=== PATIENT | female | born 1970 | race Two or more races ===

== ENCOUNTER → 2024-06-02 | Outpatient (CLI) | payer MEDICAID, SELFPAY ==
--- NOTE | 2024-06-02 12:50 | XR_ITS ---
Examination: Left os calcis 2 views Technique one AP lateral left os calcis 2 views Exam date and time: June 02, 2024 1306 hrs. Indications: Heel pain with walking beginning 2 months ago. Findings: 11 mm pontine 9 mm posterior bony calcaneal spurs Ossification in the plantar fascia Impression: No fracture Significant plantar posterior bony calcaneal spurs Ossification plantar fascia
== END | disposition home or self-care (01) ==
PROVIDERS: PCP Physician Assistant; Referring Provider Nurse Practitioner Primary Care; Visit Provider Nurse Practitioner Primary Care
DX: M77.32 Calcaneal spur, left foot (principal); M61.572 Other ossification of muscle, left ankle and foot
CPT/HCPCS: 73650

== ENCOUNTER → 2024-08-31 | Outpatient (CLI) | payer MEDICAID, SELFPAY ==
--- NOTE | 2024-08-31 10:00 | XR_ITS ---
Examination: Screening digital mammography, bilateral Computer aided detection 3-D breast Tomosynthesis, bilateral Date and time of exam: August 31, 2024 1022 hours Compared to mammograms dating to March 14, 2020 Indication: Screening Technique: Nonmagnified MLO, CC views of the breasts to been obtained, reconstructed from 3-D Tomosynthesis images. R2 computer aided detection program utilized for evaluation of suspicious masses and/or abnormal calcifications. 3-D Tomosynthesis images obtained. Findings: Scattered areas of fibroglandular density Benign calcifications. No interval suspicious masses Impression: BI-RADS category II: Benign Findings. Recommend 1 year follow-up mammogram.
== END | disposition home or self-care (01) ==
LOC: CDIM 10:15
PROVIDERS: Referring Provider Nurse Practitioner Family; Visit Provider Nurse Practitioner Family
DX: Z12.31 Encounter for screening mammogram for malignant neoplasm of breast (principal); R92.323 Mammographic fibroglandular density, bilateral breasts; R92.1 Mammographic calcification found on diagnostic imaging of breast
CPT/HCPCS: 77063; 77067

== ENCOUNTER → 2024-09-14 | Outpatient (CLI) | payer MEDICAID, SELFPAY ==
--- NOTE | 2024-09-14 12:30 | XR_ITS ---
Examination: Arterial duplex lower extremity study. Date and time of exam: September 14, 2024 1424 hours INDICATIONS: Bilateral knee pain and paresthesias 4 months Findings: Duplex sonographic imaging of the lower extremity arteries using B-mode/Ron scale imaging and Doppler spectral analysis and color flow. Ankle brachial indices have been recorded. Right common femoral artery demonstrates triphasic flow. Right superficial femoral artery demonstrates triphasic flow. Right popliteal artery demonstrates triphasic flow. Right posterior tibial artery demonstrated triphasic flow. Right ankle/brachial index is 1.3. Left common femoral artery demonstrates triphasic flow. Left superficial femoral artery demonstrates triphasic flow. Left popliteal artery demonstrates triphasic flow. Left posterior tibial artery demonstrated biphasic flow. Left ankle/brachial index is 1.3. Impression: Negative study
== END | disposition home or self-care (01) ==
LOC: CDIM 14:08
PROVIDERS: Referring Provider Nurse Practitioner; Visit Provider Nurse Practitioner
DX: R20.8 Other disturbances of skin sensation (principal)
CPT/HCPCS: 93925

== ENCOUNTER 2024-10-27 14:30 | Outpatient (RCR) | payer MEDICAID, SELFPAY ==
--- NOTE | 2024-10-19 14:56 | PTNOTE_ITS ---
PT OP Initial Eval Patient Information Outpatient Physical Therapy Treatment Date: 10/19/24 Visit Reasons: Pain in toes Medical Diagnosis: M79.67 Treatment Dx #1: R foot pain Start of Care: 10/19/24 Date of Onset: 1 month ago Smoking Status Smoking Status: Never smoker Initial Assessment Subjective: Pt is 54 yr old tanzanian speaking female who c/o R foot pain since starting to use arch support insoles recently. She got a pain injection in the R foot which took the pain away and then she started using the insoles and the top of the foot started hurting her. This pain limits walking tolerance. 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 PMH: allergies Imagin mm pontine 9 mm posterior bony calcaneal spurs?,Ossification in the plantar fascia?? Pt goal: less R foot pain Objective: R foot AROM: DF: 8 deg PF: 50 deg TTP: moderate of dorsal foot over distal metatarsals PROM: pain into forefoot eversion TTP: plantar aspect is not TTP Gait: Decreased push off in terminal stance on R Heel raise: pain Assessment: Pt has pain of dorsal metatarsals distally and with heel raises. The plantar aspect of the R foot is not tender or hurting. Pt may benefit from skilled therapy to meet goals and has fair rehab potential. Short Term and Nursing Home Goals 1. Ind with HEP 2. Decreased TTP of distal MT from mod to min 3. Pt will ambulate with symmetrical push off in terminal stance x50' Treatment Plan ? 1. Manual therapy ? 2. Therex ? 3. Modalities as indicated, moist heat, ice, estim Frequency and Duration: 1-2x a week for 12 visits plus the evaluation Certification Dates: 10/19/24 to 01/17/25 Procedure Charges OP PT Eval Mod Complex 30 minutes: Yes
--- NOTE | 2024-10-27 15:32 | PT.ODAYNRPT ---
PT Outpatient Daily Note OP Daily Note Outpatient Physical Therapy Treatment Date: 10/27/24 Visit Reasons: Pain in toes Subjective: No new complaints. Objective: Please see flow sheet for there x list. Assessment: pt tolerated interventions with no complaints today. Plan: Continue with POC. Length of Time (minutes) of Treatment: 30 Minutes Procedure Charges Therapeutic Exercise 30 minutes: Yes
== END 2024-10-31 23:59 | disposition home or self-care (01) ==
LOC: CPTX 14:30
PROVIDERS: PCP Student in an Organized Health Care Education/Training Program; Referring Provider Student in an Organized Health Care Education/Training Program; Visit Provider Student in an Organized Health Care Education/Training Program
DX: M79.671 Pain in right foot (principal)
CPT/HCPCS: 97110; 97162